=== PATIENT | female | born 1995 | race Two or more races ===

== ENCOUNTER 2017-06-18 20:25 | Emergency (ER) | payer SELFPAY ==
[~2017-06-18] VITALS: Ht 165.1 cm; Wt 70.0 kg
[~2017-06-18 20:25] MED LIST: BACT800T5 PO; IBUP-232 PO; TRAM50 PO; Z.0.NO CURRENT MEDS
[2017-06-18 21:49] VITALS: BP 134/90; PULSE 118; RESP 20; TEMP 99.9; O2SAT 100
[2017-06-18] MEDS ORDERED: SODIUM CHLOR 0.9% 1000 ML INJ 1,000 ML IV SCH (22:15)
[2017-06-18] MEDS ORDERED: SODIUM CHLORIDE 0.9% FLUSH 10 ML FLUSH IV FLUSH PRN (22:15)
[2017-06-18] MEDS ORDERED: ONDANSETRON HCL 4 MG/2 ML VIAL IV PUSH ONE (22:15)
[2017-06-18] MEDS ORDERED: ACETAMINOPHEN 325 MG TAB PO ONE (22:15)
--- NOTE | 2017-06-18 22:20 | PD ---
HPI Chief Complaint: Cold / Flu Symptoms Time Seen by Provider: 22:12 Travel History International Travel<30 days: No Contact w/Intl Traveler<30days: No Traveled to known affect area: No History of Present Illness HPI 21-year-old female here for evaluation of possible influenza. The patient reports that for the past 5 days she has had generalized malaise, upper respiratory symptoms, cough productive yellow sputum, sore throat, and over the last 2 days she has had several episodes of vomiting and diarrhea. Emesis consists of whatever she has eaten or drank. Diarrhea i watery and brown. No hemoptysis. She has had subjective fevers and chills. No rash. No urinary symptoms. PFSH Past Medical History Asthma: Yes Diminished Hearing: No Reproductive: Yes (OVARIAN CYST) Immunizations Current: Yes ?: Unknown LMP: 05/14/17 : 0 Para: 0 Past Surgical History Surgical History: No Previous Surgery Social History Alcohol Use: Yes Tobacco Use: No Substance Use: Yes ("WEED") Allergies-Medications (Allergen,Severity, Reaction): Coded Allergies: No Known Allergies (Verified Adverse Reaction, Unknown, 06/18/17) Reported Meds & Prescriptions Reported Meds & Active Scripts Active Review of Systems Except as stated in HPI: all other systems reviewed are Neg Physical Exam Narrative GENERAL: Well-developed, well-nourished, comfortable, no apparent distress. SKIN: Focused skin assessment warm/dry. No rash. HEAD: Atraumatic. Normocephalic. EYES: Pupils equal and round. No scleral icterus. No injection or drainage. ENT: Mucous membranes pink and moist. Normal pharynx. Bilateral tympanic membranes and external auditory canals are normal. NECK: Trachea midline. No JVD. No nuchal rigidity. CARDIOVASCULAR: Regular rate and rhythm. No murmur appreciated. RESPIRATORY: No accessory muscle use. Clear to auscultation. Breath sounds equal bilaterally. GASTROINTESTINAL: Abdomen soft, non-tender, nondistended. MUSCULOSKELETAL: No obvious deformities. No clubbing. No cyanosis. No edema. NEUROLOGICAL: Awake and alert. No obvious cranial nerve deficits. Motor grossly within normal limits. Normal speech. PSYCHIATRIC: Appropriate mood and affect; insight and judgment normal. Data Data Last Documented VS Vital Signs Date Time Temp Pulse Resp B/P (MAP) Pulse Ox O2 Delivery O2 Flow Rate FiO2 06/18/17 21:49 99.9 118 20 134/90 (105) 100 Orders Orders Beta Hcg (Quant/Titer) (06/18/17 22:15) Complete Blood Count With Diff (06/18/17 22:15) Comprehensive Metabolic Panel (06/18/17 22:15) Urinalysis - C+S If Indicated (06/18/17 22:15) Iv Access Insert/Monitor (06/18/17 22:15) Ecg Monitoring (06/18/17 22:15) Oximetry (06/18/17 22:15) Sodium Chlor 0.9% 1000 Ml Inj (Ns 1000 M (06/18/17 22:15) Sodium Chloride 0.9% Flush (Ns Flush) (06/18/17 22:15) Ed Urine Pregnancytest Poc (06/18/17 22:15) Ondansetron Inj (Zofran Inj) (06/18/17 22:15) Acetaminophen (Tylenol) (06/18/17 22:15) Group A Rapid Strep Screen (06/18/17 22:15) Influenzae A/B Antigen (06/18/17 22:15) Strep Culture (Group A) (06/18/17 22:35) Us Pelvis (Ques Preg/Ectopic) (06/18/17 ) Labs Laboratory Tests Test 06/18/17 22:35 White Blood Count 9.8 TH/MM3 Red Blood Count 4.57 MIL/MM3 Hemoglobin 12.9 GM/DL Hematocrit 37.3 % Mean Corpuscular Volume 81.6 FL Mean Corpuscular Hemoglobin 28.3 PG Mean Corpuscular Hemoglobin Concent 34.7 % Red Cell Distribution Width 14.0 % Platelet Count 278 TH/MM3 Mean Platelet Volume 8.3 FL Neutrophils (%) (Auto) 76.3 % Lymphocytes (%) (Auto) 13.5 % Monocytes (%) (Auto) 7.0 % Eosinophils (%) (Auto) 2.8 % Basophils (%) (Auto) 0.4 % Neutrophils # (Auto) 7.5 TH/MM3 Lymphocytes # (Auto) 1.3 TH/MM3 Monocytes # (Auto) 0.7 TH/MM3 Eosinophils # (Auto) 0.3 TH/MM3 Basophils # (Auto) 0.0 TH/MM3 CBC Comment DIFF FINAL Differential Comment Urine Color YELLOW Urine Turbidity HAZY Urine pH 5.5 Urine Specific [place] 1.020 Urine Protein TRACE mg/dL Urine Glucose (UA) NEG mg/dL Urine Ketones NEG mg/dL Urine Occult Blood SMALL Urine Nitrite NEG Urine Bilirubin NEG Urine Urobilinogen LESS THAN 2.0 MG/DL Urine Leukocyte Esterase MOD Urine RBC 1 /hpf Urine WBC 3 /hpf Urine Squamous Epithelial Cells 9 /hpf Urine Bacteria RARE /hpf Urine Hyaline Casts 1 /lpf Urine Mucus FEW /lpf Microscopic Urinalysis Comment CULT NOT INDICATED Blood Urea Nitrogen 5 MG/DL Creatinine 0.74 MG/DL Random Glucose 91 MG/DL Total Protein 8.2 GM/DL Albumin 4.2 GM/DL Calcium Level 8.5 MG/DL Alkaline Phosphatase 61 U/L Aspartate Amino Transf (AST/SGOT) 14 U/L Alanine Aminotransferase (ALT/SGPT) 17 U/L Total Bilirubin 0.3 MG/DL Sodium Level 138 MEQ/L Potassium Level 3.1 MEQ/L Chloride Level 104 MEQ/L Carbon Dioxide Level 24.5 MEQ/L Anion Gap 10 MEQ/L Estimat Glomerular Filtration Rate 97 ML/MIN Human Chorionic Gonadotropin, Quant 4526 MIU/ML [facility] Medical Decision Making Medical Screen Exam Complete: Yes Emergency Medical Condition: Yes Medical Record Reviewed: Yes Differential Diagnosis Influenza, viral illness, gastroenteritis, strep pharyngitis, dehydration/ metabolic abnormality Narrative Course Initial vital signs show heart rate 118, blood pressure 134/90, pulse ox 100% on room air, oral temperature 99.9F. CBC: WBC 9.8, hemoglobin 12.9, hematocrit 37.3, platelets 278, neutrophils 76%. CMP is remarkable for potassium 3.1 which was replaced orally. Beta hCG is 4526. UA: Hazy, small occult blood, moderate leukocyte esterase, rare bacteria, few mucus. The patient was made aware of all findings. She was given a dose of Zofran and a liter of normal saline IV. She states she still feels a little bit nauseous. She is also given Tylenol for her fever. She complains of having intermittent lower abdominal cramping. This is her first . Pelvic ultrasound will be ordered to evaluate for possible ectopic . Brain Bhatti MD Jun 18, 2017 22:20
[2017-06-18 22:48] LABS: AUTOMATED NEUTROPHIL # 7.5 TH/MM3 (1.8-7.7); BASOPHIL % 0.4 % (0.0-2.0); EOSINOPHIL # 0.3 TH/MM3 (0-0.4); EOSINOPHIL % 2.8 % (0.0-4.0); HEMATOCRIT 37.3 % (35.0-46.0); HEMOGLOBIN 12.9 GM/DL (11.6-15.3); LYMPH % 13.5 % (9.0-44.0); LYMPHOCYTE # 1.3 TH/MM3 (1.0-4.8); MEAN CELL VOLUME 81.6 FL (80.0-100.0); MEAN CORPUSCULAR HEMOGLOBIN 28.3 PG (27.0-34.0); MEAN CORPUSCULAR HGB CONC 34.7 % (32.0-36.0); MEAN PLATELET VOLUME 8.3 FL (7.0-11.0); MONOCYTE # 0.7 TH/MM3 (0-0.9); NEUT % 76.3 % (16.0-70.0); PLATELET COUNT 278 TH/MM3 (150-450); RED BLOOD COUNT 4.57 MIL/MM3 (4.00-5.30); WHITE BLOOD COUNT 9.8 TH/MM3 (4.0-11.0)
[2017-06-18 23:00] LABS: BACTERIA, URINE RARE /hpf; BILIRUBIN, URINE NEG (NEG); BLOOD, URINE SMALL (NEG); GLUCOSE,URINE NEG (NEG); HYALINE CAST, URINE 1 /lpf (RARE); KETONE, URINE NEG (NEG); MUCUS URINE FEW /lpf (OCC); NITRITE,URINE NEG (NEG); PH, URINE 5.5 (5.0-8.5); SQUAMOUS EPITHELIAL CELL URINE 9 /hpf (0-5); URINE COLOR YELLOW (YELLW/STRAW); URINE LEUKOCYTE ESTERASE MOD (NEG)
[2017-06-18 23:10] LABS: ALBUMIN 4.2 GM/DL (3.4-5.0); AST (GOT) 14 U/L (15-37); BICARBONATE 24.5 MEQ/L (21.0-32.0); BLOOD UREA NITROGEN 5 MG/DL (7-18); CALCIUM 8.5 MG/DL (8.5-10.1); CHLORIDE 104 MEQ/L (98-107); CREATININE 0.74 MG/DL (0.50-1.00); GLOMERULAR FILTRATION RATE 97 ML/MIN (>89); GLUCOSE,RANDOM 91 MG/DL (74-106); SODIUM (NA) 138 MEQ/L (136-145)
[2017-06-18 23:11] LABS: ALT (GPT) 17 U/L (10-53)
[2017-06-18 23:27] LABS: ALKALINE PHOSPHATASE 61 U/L (45-117); TOTAL BILIRUBIN ADULT 0.3 MG/DL (0.2-1.0); TOTAL PROTEIN 8.2 GM/DL (6.4-8.2)
[2017-06-18] MEDS ORDERED: POTASSIUM CHLORIDE 20 MEQ CONTROLLED RELEASE TAB PO ONE (23:45)
[2017-06-19] MEDS ORDERED: CEPHALEXIN MONOHYDRATE 500 MG CAP PO ONE (00:15)
--- NOTE | 2017-06-19 01:29 | RADRPT ---
EXAM DATE/TIME: 06/19/2017 00:53 [place] COMPARISON: No previous studies available for comparison. INDICATIONS : Nausea and vomiting. LAB(S): Beta-hC MEDICAL HISTORY : . SURGICAL HISTORY : None. ENCOUNTER: Initial ACUITY: 2 days PAIN SCORE: 3/10 LOCATION: Bilateral pelvis MEASUREMENTS: UTERUS: 7.3 x 5.1 x 3.8 cm ENDOMETRIAL STRIPE: 16 mm RIGHT OVARY: 4.0 x 2.5 x 2.0 cm LEFT OVARY: 3.0 x 1.1 x 1.7 cm FREE FLUID: Yes CROWN RUMP LENGTH: not seen = WKS DAYS FHR: not seen BPM FINDINGS: UTERUS: A small cystic structure seen associated with the endometrial canal consistent with a gestational sac . This is smoothly marginated. It measures 0.7 cm in mean diameter which is below the threshold for a ccurate gestational age the projection with ultrasound. A small yolk sac observed. RIGHT OVARY: A corpus luteal cyst is seen involving the right ovary measuring 2.5 cm in diameter. LEFT OVARY: Ovary contains no mass or significant cystic lesion. MISCELLANEOUS: Small amount of free fluid within the cul-de-sac. CONCLUSION: 1. Intrauterine gestation. Gestational age is below the threshold for accurate depiction with ultraso und. 2. Trace amount of free fluid within the cul-de-sac. Jered Treviño Jr., MD on June 19, 2017 at 1:24 Board Certified Radiologist. This report was verified electronically.
[2017-06-19] MEDS ORDERED: CEPH-460 PO (01:53)
--- NOTE | 2017-06-19 01:58 | PD ---
Physical Exam Date Seen by Provider: Jun 19, 2017 Time Seen by Provider: 01:53 Data Data Last Documented VS Vital Signs Date Time Temp Pulse Resp B/P (MAP) Pulse Ox O2 Delivery O2 Flow Rate FiO2 06/18/17 21:49 99.9 118 20 134/90 (105) 100 Orders Orders Beta Hcg (Quant/Titer) (06/18/17 22:15) Complete Blood Count With Diff (06/18/17 22:15) Comprehensive Metabolic Panel (06/18/17 22:15) Urinalysis - C+S If Indicated (06/18/17 22:15) Iv Access Insert/Monitor (06/18/17 22:15) Ecg Monitoring (06/18/17 22:15) Oximetry (06/18/17 22:15) Sodium Chlor 0.9% 1000 Ml Inj (Ns 1000 M (06/18/17 22:15) Sodium Chloride 0.9% Flush (Ns Flush) (06/18/17 22:15) Ed Urine Pregnancytest Poc (06/18/17 22:15) Ondansetron Inj (Zofran Inj) (06/18/17 22:15) Acetaminophen (Tylenol) (06/18/17 22:15) Group A Rapid Strep Screen (06/18/17 22:15) Influenzae A/B Antigen (06/18/17 22:15) Strep Culture (Group A) (06/18/17 22:35) Potassium Chloride (Kcl) (06/18/17 23:45) Cephalexin (Keflex) (06/19/17 00:15) Us Pelvis (Ques Pr/Ect)W Trans (06/19/17 ) Ed Discharge Order (06/19/17 01:52) Labs Laboratory Tests Test 06/18/17 22:35 White Blood Count 9.8 TH/MM3 Red Blood Count 4.57 MIL/MM3 Hemoglobin 12.9 GM/DL Hematocrit 37.3 % Mean Corpuscular Volume 81.6 FL Mean Corpuscular Hemoglobin 28.3 PG Mean Corpuscular Hemoglobin Concent 34.7 % Red Cell Distribution Width 14.0 % Platelet Count 278 TH/MM3 Mean Platelet Volume 8.3 FL Neutrophils (%) (Auto) 76.3 % Lymphocytes (%) (Auto) 13.5 % Monocytes (%) (Auto) 7.0 % Eosinophils (%) (Auto) 2.8 % Basophils (%) (Auto) 0.4 % Neutrophils # (Auto) 7.5 TH/MM3 Lymphocytes # (Auto) 1.3 TH/MM3 Monocytes # (Auto) 0.7 TH/MM3 Eosinophils # (Auto) 0.3 TH/MM3 Basophils # (Auto) 0.0 TH/MM3 CBC Comment DIFF FINAL Differential Comment Urine Color YELLOW Urine Turbidity HAZY Urine pH 5.5 Urine Specific [place] 1.020 Urine Protein TRACE mg/dL Urine Glucose (UA) NEG mg/dL Urine Ketones NEG mg/dL Urine Occult Blood SMALL Urine Nitrite NEG Urine Bilirubin NEG Urine Urobilinogen LESS THAN 2.0 MG/DL Urine Leukocyte Esterase MOD Urine RBC 1 /hpf Urine WBC 3 /hpf Urine Squamous Epithelial Cells 9 /hpf Urine Bacteria RARE /hpf Urine Hyaline Casts 1 /lpf Urine Mucus FEW /lpf Microscopic Urinalysis Comment CULT NOT INDICATED Blood Urea Nitrogen 5 MG/DL Creatinine 0.74 MG/DL Random Glucose 91 MG/DL Total Protein 8.2 GM/DL Albumin 4.2 GM/DL Calcium Level 8.5 MG/DL Alkaline Phosphatase 61 U/L Aspartate Amino Transf (AST/SGOT) 14 U/L Alanine Aminotransferase (ALT/SGPT) 17 U/L Total Bilirubin 0.3 MG/DL Sodium Level 138 MEQ/L Potassium Level 3.1 MEQ/L Chloride Level 104 MEQ/L Carbon Dioxide Level 24.5 MEQ/L Anion Gap 10 MEQ/L Estimat Glomerular Filtration Rate 97 ML/MIN Human Chorionic Gonadotropin, Quant 4526 MIU/ML [facility] Medical Record Reviewed: Yes Supervised Visit with ALBINO: Yes Interpretation(s) Last 24 hours Impressions Pelvis Ultrasound 06/19/17 0000 Signed Impressions: Service Date/Time: June 00:53 - CONCLUSION: 1. Intrauterine gestation. Gestational age is below the threshold for accurate depiction with ultrasound. 2. Trace amount of free fluid within the cul-de- sac. Jered Treviño Jr., MD Differential Diagnosis . Narrative Course The patient's ultrasound reveals a intrauterine sac age indeterminant but with her quantitative hCG she is most likely between 2-4 weeks. I have informed the patient of these findings. She is aware that this can be a very early or indication of an early miscarriage. Patient is advised to follow- up with a food services coordinator in the next 2-3 days and have repeat quantitative hCG as well as a repeat ultrasound in 1-2 weeks. Patient is instructed to return to the ER if she has any increasing abdominal pain, increasing vaginal bleeding or any other problems. She is discharged home on Keflex for urinary tract infection. Patient verbally states understanding and agrees with treatment plan and follow-up. Diagnosis Primary Impression: Early intrauterine Additional Impression: Urinary tract infection Referrals: [facility] 2 days Patient Instructions: General Instructions Additional Instruction: Rest. Increase fluids. Keflex. Follow-up with OB for repeat level in the next 2-3 days. Repeat ultrasound in the next 1-2 weeks. Return to the ER if any worsening symptoms or increased vaginal bleeding or abdominal pain. Med/Other Pt SpecificInfo: Prescription(s) given Scripts Cephalexin (Keflex) 500 Mg Capsule 500 MG PO BID for Infection, #14 CAP 0 Refills Prov: Brain Bhatti MD 06/19/17 Disposition: 01 DISCHARGE HOME Condition: Stable Lawrence Weems Jun 19, 2017 01:58
[2017-06-19 02:00] VITALS: BP 107/56
== END 2017-06-19 02:54 | disposition home or self-care (01) ==
LOC: NEPD 20:25
DX: O23.41 Unspecified infection of urinary tract in pregnancy, first trimester (principal); Z3A.00 Weeks of gestation of pregnancy not specified
CPT/HCPCS: 76700; 76817; 80053; 81001; 84702; 84703; 85025; 87081; 87804; 87880; 96361; 96374; 99284; J2405; J7030

== ENCOUNTER 2017-06-30 15:57 | Emergency (ER) | payer SELFPAY ==
[~2017-06-30 15:57] MED LIST changes: -BACT800T5 PO; +CEPH-460 PO; -IBUP-232 PO; -TRAM50 PO; -Z.0.NO CURRENT MEDS
[2017-06-30 16:14] VITALS: BP 125/71; PULSE 82; RESP 14; TEMP 98.8; O2SAT 99
[2017-06-30 17:52] LABS: AUTOMATED NEUTROPHIL # 5.3 TH/MM3 (1.8-7.7); BASOPHIL % 0.7 % (0.0-2.0); EOSINOPHIL % 0.6 % (0.0-4.0); HEMATOCRIT 37.6 % (35.0-46.0); HEMOGLOBIN 12.8 GM/DL (11.6-15.3); LYMPH % 16.5 % (9.0-44.0); LYMPHOCYTE # 1.2 TH/MM3 (1.0-4.8); MEAN CELL VOLUME 82.1 FL (80.0-100.0); MEAN CORPUSCULAR HGB CONC 34.1 % (32.0-36.0); MEAN PLATELET VOLUME 8.7 FL (7.0-11.0); MONO % 7.7 % (0.0-8.0); MONOCYTE # 0.6 TH/MM3 (0-0.9); NEUT % 74.5 % (16.0-70.0); PLATELET COUNT 301 TH/MM3 (150-450); RED BLOOD COUNT 4.58 MIL/MM3 (4.00-5.30); RED CELL DISTRIBUTION WIDTH 13.6 % (11.6-17.2); WHITE BLOOD COUNT 7.2 TH/MM3 (4.0-11.0)
[2017-06-30 17:58] LABS: AMORPHOUS SEDIMENT, URINE RARE; BACTERIA, URINE RARE /hpf; BILIRUBIN, URINE NEG (NEG); BLOOD, URINE NEG (NEG); GLUCOSE,URINE NEG (NEG); KETONE, URINE 10 mg/dL (NEG); MUCUS URINE MANY /lpf (OCC); NITRITE,URINE NEG (NEG); SQUAMOUS EPITHELIAL CELL URINE 8 /hpf (0-5); URINE COLOR YELLOW (YELLW/STRAW); URINE LEUKOCYTE ESTERASE LARGE (NEG)
[2017-06-30 18:09] LABS: ALBUMIN 4.3 GM/DL (3.4-5.0); AST (GOT) 19 U/L (15-37); BICARBONATE 24.1 MEQ/L (21.0-32.0); BLOOD UREA NITROGEN 6 MG/DL (7-18); CALCIUM 8.9 MG/DL (8.5-10.1); CHLORIDE 104 MEQ/L (98-107); GLOMERULAR FILTRATION RATE 104 ML/MIN (>89); GLUCOSE,RANDOM 90 MG/DL (74-106); SODIUM (NA) 137 MEQ/L (136-145)
[2017-06-30 18:10] LABS: ALT (GPT) 19 U/L (10-53)
[2017-06-30 18:26] LABS: ALKALINE PHOSPHATASE 57 U/L (45-117); TOTAL BILIRUBIN ADULT 0.4 MG/DL (0.2-1.0); TOTAL PROTEIN 8.3 GM/DL (6.4-8.2)
--- NOTE | 2017-07-03 10:53 | PD ---
HPI Chief Complaint: Related Problem Time Seen by Provider: 16:14 Travel History International Travel<30 days: No Contact w/Intl Traveler<30days: No Traveled to known affect area: No History of Present Illness HPI 21-year-old female who states she is approximately 7 weeks , presents emergency department for evaluation of nausea vomiting. Patient states that she has nausea vomiting after everything she eats. Has mild lower abdominal cramping over the last 2-3 days. No vaginal bleeding. She does have a white discharge. Denies any fever or chills. No other symptoms to report. PFSH Past Medical History Asthma: Yes Diminished Hearing: No Reproductive: Yes (OVARIAN CYST) Immunizations Current: Yes ?: LMP: 05/14/2017 : 0 Para: 0 Social History Alcohol Use: Yes Tobacco Use: No Substance Use: Yes ("WEED") Allergies-Medications (Allergen,Severity, Reaction): Coded Allergies: No Known Allergies (Verified Adverse Reaction, Unknown, 06/18/17) Reported Meds & Prescriptions Reported Meds & Active Scripts Active Keflex (Cephalexin) 500 Mg Capsule 500 Mg PO BID Review of Systems Except as stated in HPI: all other systems reviewed are Neg Physical Exam Narrative Well-nourished appearing female patient. she appears nontoxic. She has even respirations. Normal heart rate. She moves all extremities. She states to me clearly. Data Data Last Documented VS Vital Signs Date Time Temp Pulse Resp B/P (MAP) Pulse Ox O2 Delivery O2 Flow Rate FiO2 06/30/17 16:14 98.8 82 14 125/71 (89) 99 Orders Orders Beta Hcg (Quant/Titer) (06/30/17 16:16) Complete Blood Count With Diff (06/30/17 16:16) Comprehensive Metabolic Panel (06/30/17 16:16) Urinalysis - C+S If Indicated (06/30/17 16:16) Ed Urine Pregnancytest Poc (06/30/17 16:16) Complete Rh (06/30/17 16:16) Labs Laboratory Tests Test 06/30/17 16:45 06/30/17 16:50 Urine Color YELLOW Urine Turbidity CLOUDY Urine pH 7.0 Urine Specific [place] 1.028 Urine Protein 30 mg/dL Urine Glucose (UA) NEG mg/dL Urine Ketones 10 mg/dL Urine Occult Blood NEG Urine Nitrite NEG Urine Bilirubin NEG Urine Urobilinogen 2.0 MG/DL Urine Leukocyte Esterase LARGE Urine RBC 77 /hpf Urine Squamous Epithelial Cells 8 /hpf Urine Amorphous Sediment RARE Urine Bacteria RARE /hpf Urine Mucus MANY /lpf Microscopic Urinalysis Comment CULT NOT INDICATED White Blood Count 7.2 TH/MM3 Red Blood Count 4.58 MIL/MM3 Hemoglobin 12.8 GM/DL Hematocrit 37.6 % Mean Corpuscular Volume 82.1 FL Mean Corpuscular Hemoglobin 28.0 PG Mean Corpuscular Hemoglobin Concent 34.1 % Red Cell Distribution Width 13.6 % Platelet Count 301 TH/MM3 Mean Platelet Volume 8.7 FL Neutrophils (%) (Auto) 74.5 % Lymphocytes (%) (Auto) 16.5 % Monocytes (%) (Auto) 7.7 % Eosinophils (%) (Auto) 0.6 % Basophils (%) (Auto) 0.7 % Neutrophils # (Auto) 5.3 TH/MM3 Lymphocytes # (Auto) 1.2 TH/MM3 Monocytes # (Auto) 0.6 TH/MM3 Eosinophils # (Auto) 0.0 TH/MM3 Basophils # (Auto) 0.0 TH/MM3 CBC Comment DIFF FINAL Differential Comment Blood Urea Nitrogen 6 MG/DL Creatinine 0.70 MG/DL Random Glucose 90 MG/DL Total Protein 8.3 GM/DL Albumin 4.3 GM/DL Calcium Level 8.9 MG/DL Alkaline Phosphatase 57 U/L Aspartate Amino Transf (AST/SGOT) 19 U/L Alanine Aminotransferase (ALT/SGPT) 19 U/L Total Bilirubin 0.4 MG/DL Sodium Level 137 MEQ/L Potassium Level 3.4 MEQ/L Chloride Level 104 MEQ/L Carbon Dioxide Level 24.1 MEQ/L Anion Gap 9 MEQ/L Estimat Glomerular Filtration Rate 104 ML/MIN Human Chorionic Gonadotropin, Quant 92910 MIU/ML [facility] Medical Decision Making Medical Screen Exam Complete: Yes Emergency Medical Condition: Yes Medical Record Reviewed: Yes Differential Diagnosis versus hyperemesis gravidarum versus electrolyte abnormality versus UTI versus threatened versus STD Narrative Course 21-year-old female presents emergency department for evaluation. Patient appears nontoxic. Workup is initiated in triage. Prior to bed placement, patient chooses to leave. AMA: The risks of leaving against medical advice without further evaluation treatment were discussed with the patient. These risks include cardiac dysfunction, cardiac dysrhythmia, possible heart attack, possible stroke or . The patient indicated understanding of these risks and appeared to have the capacity to make this decision. Upon review of her lab work, patient does appear to have a UTI. I will make sure that she has been called back to be given appropriate prescription for this. Diagnosis Primary Impression: Vaginal discharge Patient Instructions: General Instructions Departure Forms: Tests/Procedures Disposition: 07 AGAINST MEDICAL ADVICE Condition: Stable Yael Laguerre Jul 03, 2017 10:53
== END 2017-06-30 19:39 | disposition left against medical advice (07) ==
LOC: NED 15:57
DX: O26.891 Other specified pregnancy related conditions, first trimester (principal); N89.8 Other specified noninflammatory disorders of vagina; Z3A.01 Less than 8 weeks gestation of pregnancy
CPT/HCPCS: 80053; 81001; 84702; 84703; 85025; 86901; 99283

== ENCOUNTER 2017-08-15 12:43 | Emergency (ER) | payer MEDICAID, OTHER ==
[~2017-08-15] VITALS: Ht 165.1 cm; Wt 59.0 kg
[2017-08-15 13:13] VITALS: BP 115/80; PULSE 129; RESP 19; TEMP 98.1; O2SAT 98
[2017-08-15] MEDS ORDERED: DOXY10TA PO (14:13)
[2017-08-15] MEDS ORDERED: ZOFR4TAB3 SL (14:13)
--- NOTE | 2017-08-15 14:25 | PD ---
HPI Chief Complaint: Related Problem Time Seen by Provider: 14:17 Travel History International Travel<30 days: No Contact w/Intl Traveler<30days: No Traveled to known affect area: No History of Present Illness HPI 22-year-old female presents emergency department with history of 13 weeks with 2 months of intractable vomiting. Patient has been tried on Zofran and Egesic, without improvement. Patient states her urine is dark, and she feels dehydrated. She cannot even keep water down. She has epigastric discomfort, but denies lower pelvic cramping, urinary symptoms or vaginal discharge or bleeding. Patient sees exchange teller at [facility]. She has no history of fever or other symptoms. This is the patient's first . She has no known drug allergies. [facility] Past Medical History Medical History: Denies Significant Hx Asthma: Yes Diminished Hearing: No Reproductive: Yes (OVARIAN CYST) Immunizations Current: Yes ?: : 0 Para: 0 Past Surgical History Surgical History: No Previous Surgery Social History Alcohol Use: No Tobacco Use: No Substance Use: Yes (MARIJUANA) Allergies-Medications (Allergen,Severity, Reaction): Coded Allergies: No Known Allergies (Verified Adverse Reaction, Unknown, 08/15/17) Reported Meds & Prescriptions Reported Meds & Active Scripts Active Reported Diclegis (Doxylamine-Pyridoxine) 10-10 Mg Tab 1 Tab PO BID Zofran Odt (Ondansetron Odt) 4 Mg Tab 4 Mg SL Q6HR PRN Review of Systems Except as stated in HPI: all other systems reviewed are Neg General / Constitutional: No: Fever Eyes: No: Visual changes HENT: No: Headaches Cardiovascular: No: Chest Pain or Discomfort Respiratory: No: Shortness of Breath Gastrointestinal: Positive: Nausea, Vomiting, Abdominal Pain, Indigestion, Dysphagia, Loss of Appetite, No: Diarrhea, Constipation Genitourinary: Positive: Other (Dark urine), No: Urgency, Frequency, Dysuria, Pelvic Pain, Flank Pain, Discharge, Vaginal Bleeding Musculoskeletal: No: Pain Skin: No Rash Neurologic: No: Weakness Psychiatric: No: Depression Endocrine: No: Polydipsia Hematologic/Lymphatic: No: Easy Bruising Physical Exam Narrative GENERAL: Patient appears in mild distress SKIN: Warm and dry. Normal color. Normal turgor. HEAD: Atraumatic. Normocephalic. EYES: Pupils equal and round. No scleral icterus. No injection or drainage. ENT: No nasal bleeding or discharge. Mucous membranes pink and moist. Pharynx is clear. Airways patent NECK: Trachea midline. Supple and nontender. CARDIOVASCULAR: Regular rate and rhythm. RESPIRATORY: No accessory muscle use. Clear to auscultation. Breath sounds equal bilaterally. GASTROINTESTINAL: Abdomen soft, mild epigastric tenderness, nondistended. Hepatic and splenic margins not palpable. No CVA tenderness. MUSCULOSKELETAL: Extremities without clubbing, cyanosis, or edema. No obvious deformities. NEUROLOGICAL: Awake and alert. No obvious cranial nerve deficits. Motor grossly within normal limits. Five out of 5 muscle strength in the arms and legs. Normal speech. PSYCHIATRIC: Appropriate mood and affect; insight and judgment normal. Data Data Last Documented VS Vital Signs Date Time Temp Pulse Resp B/P (MAP) Pulse Ox O2 Delivery O2 Flow Rate FiO2 08/15/17 13:13 98.1 129 19 115/80 (92) 98 Orders Orders Beta Hcg (Quant/Titer) (08/15/17 14:19) Complete Blood Count With Diff (08/15/17 14:19) Comprehensive Metabolic Panel (08/15/17 14:19) Urinalysis - C+S If Indicated (08/15/17 14:19) Sodium Chlor 0.9% 1000 Ml Inj (Ns 1000 M (08/15/17 14:19) Sodium Chloride 0.9% Flush (Ns Flush) (08/15/17 14:30) Promethazine Inj (Phenergan Inj) (08/15/17 14:30) Urine Culture (08/15/17 16:20) Ceftriaxone Inj (Rocephin Inj) (08/15/17 17:30) Labs Laboratory Tests Test 08/15/17 14:45 08/15/17 16:20 White Blood Count 9.0 TH/MM3 Red Blood Count 4.84 MIL/MM3 Hemoglobin 13.9 GM/DL Hematocrit 40.3 % Mean Corpuscular Volume 83.3 FL Mean Corpuscular Hemoglobin 28.8 PG Mean Corpuscular Hemoglobin Concent 34.6 % Red Cell Distribution Width 14.6 % Platelet Count 318 TH/MM3 Mean Platelet Volume 8.8 FL Neutrophils (%) (Auto) 78.7 % Lymphocytes (%) (Auto) 15.8 % Monocytes (%) (Auto) 4.8 % Eosinophils (%) (Auto) 0.1 % Basophils (%) (Auto) 0.6 % Neutrophils # (Auto) 7.1 TH/MM3 Lymphocytes # (Auto) 1.4 TH/MM3 Monocytes # (Auto) 0.4 TH/MM3 Eosinophils # (Auto) 0.0 TH/MM3 Basophils # (Auto) 0.1 TH/MM3 CBC Comment DIFF FINAL Differential Comment Blood Urea Nitrogen 13 MG/DL Creatinine 0.77 MG/DL Random Glucose 93 MG/DL Total Protein 8.9 GM/DL Albumin 4.1 GM/DL Calcium Level 9.6 MG/DL Alkaline Phosphatase 67 U/L Aspartate Amino Transf (AST/SGOT) 42 U/L Alanine Aminotransferase (ALT/SGPT) 51 U/L Total Bilirubin 0.8 MG/DL Sodium Level 138 MEQ/L Potassium Level 3.9 MEQ/L Chloride Level 102 MEQ/L Carbon Dioxide Level 24.6 MEQ/L Anion Gap 11 MEQ/L Estimat Glomerular Filtration Rate 92 ML/MIN Human Chorionic Gonadotropin, Quant [id number] MIU/ML Urine Color DARK-YELLOW Urine Turbidity HAZY Urine pH 6.0 Urine Specific [place] 1.032 Urine Protein 30 mg/dL Urine Glucose (UA) NEG mg/dL Urine Ketones 150 mg/dL Urine Occult Blood NEG Urine Nitrite NEG Urine Bilirubin SMALL Urine Urobilinogen 4.0 MG/DL Urine Leukocyte Esterase LARGE Urine WBC 2 /hpf Urine Squamous Epithelial Cells 15 /hpf Urine Bacteria MOD /hpf Urine Mucus MANY /lpf Microscopic Urinalysis Comment CULTURE INDICATED MDM Medical Decision Making Medical Screen Exam Complete: Yes Emergency Medical Condition: Yes Differential Diagnosis Hyperemesis gravidarum. Intractable vomiting. Dehydration. Narrative Course Patient appears medically stable at time of exam. Labs ordered including CBC, CMP, serum hCG, lactic acid, and urinalysis. IV access is obtained the patient is given 2000 mL of normal saline bolus. Patient is given 25 mg Phenergan IM. CBC is unremarkable. CMP is unremarkable, with an hCG of [id number]. Urinalysis strongly suggest urinary tract infection appearing dark yellow, and hazy. Specific gravity is 1.030. There is 30 protein, 150 ketones, small bilirubin, and large leukocyte esterase. Patient is noted to have moderate bacteria. Urine culture is placed. Patient is given 1000 mg Rocephin IV. Patient is continued on Keflex 500mg 3 times daily for 7 days. Patient is given Phenergan 25 mg every 6 hours as needed nausea vomiting #20. Patient is to rest, push fluids, and follow-up with her CAMPUS WELLNESS COORDINATOR next week. Diagnosis Primary Impression: UTI (urinary tract infection) Qualified Codes: N30.00 - Acute cystitis without hematuria Additional Impression: Hyperemesis gravidarum Referrals: [facility] Patient Instructions: Dysuria (ED), General Instructions, Hyperemesis Gravidarum (ED) Additional Instructions: V access is obtained the patient is given 2000 mL of normal saline bolus. Patient is given 25 mg Phenergan IM. CBC is unremarkable. CMP is unremarkable, with an hCG of [id number]. Urinalysis strongly suggest urinary tract infection appearing dark yellow, and hazy. Specific gravity is 1.030. There is 30 protein, 150 ketones, small bilirubin, and large leukocyte esterase. Patient is noted to have moderate bacteria. Urine culture is placed. Patient is given 1000 mg Rocephin IV. Patient is continued on Keflex 500mg 3 times daily for 7 days. Patient is given Phenergan 25 mg every 6 hours as needed nausea vomiting #20. Patient is to rest, push fluids, and follow-up with her CAMPUS WELLNESS COORDINATOR next week. Med/Other Pt SpecificInfo: Prescription(s) given Disposition: 01 DISCHARGE HOME Condition: Stable Delfino Stokes August 15, 2017 14:25
[2017-08-15] MEDS ORDERED: SODIUM CHLORIDE 0.9% FLUSH 10 ML FLUSH IV FLUSH PRN (14:30)
[2017-08-15] MEDS ORDERED: PROMETHAZINE INJ 25 MG/ML VIAL IM ONE (14:30)
[2017-08-15] MEDS: SODIUM CHLOR 0.9% 1000 ML INJ 1,000 ML IV SCH ×2 (14:50→15:28)
[2017-08-15 15:24] LABS: AUTOMATED NEUTROPHIL # 7.1 TH/MM3 (1.8-7.7); BASOPHIL # 0.1 TH/MM3 (0-0.2); BASOPHIL % 0.6 % (0.0-2.0); EOSINOPHIL % 0.1 % (0.0-4.0); HEMATOCRIT 40.3 % (35.0-46.0); HEMOGLOBIN 13.9 GM/DL (11.6-15.3); LYMPH % 15.8 % (9.0-44.0); LYMPHOCYTE # 1.4 TH/MM3 (1.0-4.8); MEAN CELL VOLUME 83.3 FL (80.0-100.0); MEAN CORPUSCULAR HEMOGLOBIN 28.8 PG (27.0-34.0); MEAN CORPUSCULAR HGB CONC 34.6 % (32.0-36.0); MEAN PLATELET VOLUME 8.8 FL (7.0-11.0); MONO % 4.8 % (0.0-8.0); MONOCYTE # 0.4 TH/MM3 (0-0.9); NEUT % 78.7 % (16.0-70.0); PLATELET COUNT 318 TH/MM3 (150-450); RED BLOOD COUNT 4.84 MIL/MM3 (4.00-5.30); RED CELL DISTRIBUTION WIDTH 14.6 % (11.6-17.2)
--- NOTE | 2017-08-15 15:44 | PD ---
Physical Exam Date Seen by Provider: August 15, 2017 Narrative This patient presents with emesis and weight loss associated with . Data Data Last Documented VS Vital Signs Date Time Temp Pulse Resp B/P (MAP) Pulse Ox O2 Delivery O2 Flow Rate FiO2 08/15/17 13:13 98.1 129 19 115/80 (92) 98 Orders Orders Beta Hcg (Quant/Titer) (08/15/17 14:19) Complete Blood Count With Diff (08/15/17 14:19) Comprehensive Metabolic Panel (08/15/17 14:19) Urinalysis - C+S If Indicated (08/15/17 14:19) Sodium Chlor 0.9% 1000 Ml Inj (Ns 1000 M (08/15/17 14:19) Sodium Chloride 0.9% Flush (Ns Flush) (08/15/17 14:30) Promethazine Inj (Phenergan Inj) (08/15/17 14:30) Labs Laboratory Tests Test 08/15/17 14:45 White Blood Count 9.0 TH/MM3 Red Blood Count 4.84 MIL/MM3 Hemoglobin 13.9 GM/DL Hematocrit 40.3 % Mean Corpuscular Volume 83.3 FL Mean Corpuscular Hemoglobin 28.8 PG Mean Corpuscular Hemoglobin Concent 34.6 % Red Cell Distribution Width 14.6 % Platelet Count 318 TH/MM3 Mean Platelet Volume 8.8 FL Neutrophils (%) (Auto) 78.7 % Lymphocytes (%) (Auto) 15.8 % Monocytes (%) (Auto) 4.8 % Eosinophils (%) (Auto) 0.1 % Basophils (%) (Auto) 0.6 % Neutrophils # (Auto) 7.1 TH/MM3 Lymphocytes # (Auto) 1.4 TH/MM3 Monocytes # (Auto) 0.4 TH/MM3 Eosinophils # (Auto) 0.0 TH/MM3 Basophils # (Auto) 0.1 TH/MM3 CBC Comment DIFF FINAL Differential Comment MDM Supervised Visit with ALBINO: Yes Narrative Course I, Dr. Garcia, have reviewed the advance practice practitioner's documentation and am in agreement, met with the patient face to face, made the diagnosis, and the medical decision making was done by me. *My assessment and Findings: The patient is awake and alert. She does not look like she feels well. She is being treated with IV fluids. Please see Marino Stokes PA-C's note for results of laboratory and radiographic evaluation, ED course, final diagnosis and disposition Condition: Stable Karon Garcia MD August 15, 2017 15:44
[2017-08-15 15:55] LABS: ALBUMIN 4.1 GM/DL (3.4-5.0); ALT (GPT) 51 U/L (10-53); AST (GOT) 42 U/L (15-37); BICARBONATE 24.6 MEQ/L (21.0-32.0); BLOOD UREA NITROGEN 13 MG/DL (7-18); CALCIUM 9.6 MG/DL (8.5-10.1); CHLORIDE 102 MEQ/L (98-107); CREATININE 0.77 MG/DL (0.50-1.00); GLOMERULAR FILTRATION RATE 92 ML/MIN (>89); GLUCOSE,RANDOM 93 MG/DL (74-106); SODIUM (NA) 138 MEQ/L (136-145)
[2017-08-15 16:12] LABS: ALKALINE PHOSPHATASE 67 U/L (45-117); TOTAL BILIRUBIN ADULT 0.8 MG/DL (0.2-1.0); TOTAL PROTEIN 8.9 GM/DL (6.4-8.2)
[2017-08-15 16:47] LABS: BACTERIA, URINE MOD /hpf; BILIRUBIN, URINE SMALL (NEG); BLOOD, URINE NEG (NEG); GLUCOSE,URINE NEG (NEG); KETONE, URINE 150 mg/dL (NEG); MUCUS URINE MANY /lpf (OCC); NITRITE,URINE NEG (NEG); SQUAMOUS EPITHELIAL CELL URINE 15 /hpf (0-5); URINE COLOR DARK-YELLOW (YELLW/STRAW); URINE LEUKOCYTE ESTERASE LARGE (NEG)
[2017-08-15] MEDS ORDERED: cefTRIAXone INJ 1,000 MG in SODIUM CHLORIDE 0.9% INJ 100 ML IV ONE (17:30)
[2017-08-15] MEDS ORDERED: CEPH-460 PO (17:34)
[2017-08-15] MEDS ORDERED: PROM25TA10 PO (17:34)
[2017-08-15 18:40] VITALS: BP 112/68
== END 2017-08-15 18:48 | disposition home or self-care (01) ==
LOC: NEPD 12:43
DX: O23.11 Infections of bladder in pregnancy, first trimester (principal); O21.0 Mild hyperemesis gravidarum; Z3A.13 13 weeks gestation of pregnancy
CPT/HCPCS: 80053; 81001; 84702; 85025; 87086; 96361; 96372; 96374; 99284; J0696; J2550; J7030

== ENCOUNTER 2018-02-09 09:26 | Inpatient (IN) ==
--- NOTE | 2018-02-09 10:38 | ED ---
History of Present Illness Primary Care Physician: No Primary Care Physician Chief Complaint: abdominal cramping History of Present Illness: 22 y/o female at 38/5 weeks gestation presents for abdominal cramping and vaginal spotting. Patient states that she started experiencing abdominal contractions that started at 11:00am yesterday. She now states that she is experiencing mild to moderate contractions about 10 mins apart since this morning. She also notes passing 2 small clots and light spotting. Some white vaginal discharges noticed on her pantiliner this morning. No gush of fluids. She admits to mild nausea and single episode of vomiting earlier today. She is still feeling movement. Denies fever, chills, chest pain or shortness of breath. No complications with this . History of anemia and ovarian cysts. No medications. NDKA. No previous surgery. Social hx: Non-smoker. No ETOH. Stopped smoking marijuana when she found out she was . Weeks Gestation:: 38 Para: 1 : 0 Review of Systems Constitutional: Denies chills, Denies fever(s) Cardiovascular: Denies chest pain Respiratory: Denies shortness of breath Gastrointestinal: Reports cramping, Reports nausea, Reports vomiting Genitourinary: Reports abnormal vaginal bleeding PMFSH - Medical / Surgical Hx Neg / Unobtainable Medical Problems Denied: Yes Surgical History: No Previous Surgery Medications and Allergies Allergies Allergy/AdvReac Type Severity Reaction Status Date / Time No Known Allergies Allergy Verified 02/09/18 10:18 Exam Vital signs: Vital Signs 02/09/18 09:53 02/09/18 09:56 Temperature 98.4 F Pulse Rate 81 Respiratory Rate 17 Blood Pressure 115/56 L Narrative: GENERAL: Well-nourished, well-developed patient. SKIN: Warm and dry. HEAD: Normocephalic and atraumatic. EYES: No scleral icterus. No injection or drainage. ENT: No nasal drainage noted. Mucous membranes pink. Airway patent. NECK: Supple, trachea midline. No JVD. CARDIOVASCULAR: Regular rate and rhythm without murmurs, gallops, or rubs. RESPIRATORY: Breath sounds equal bilaterally. No accessory muscle use. ABDOMEN/GI: Abdomen soft, non-tender, bowel sounds present, no rebound, no guarding Gravid to [-] weeks size GENITOURINARY: External Genitalia: intact and normal in appearance Cervix: posterior, soft Dilatation: closed Effacement: Station: -2 Presentation: vertex Membranes: intact Uterine Contractions: irregular FHT's: Category: 1 Baseline: 130-140s Reactive: yes Variability: moderate Decels: none EXTREMITIES: No cyanosis or edema. BACK: Nontender without obvious deformity. No CVA tenderness. NEUROLOGICAL: Awake and alert. Motor and sensory grossly within normal limits. Five out of 5 muscle strength in all muscle groups. Normal speech. Assessment and Plan - Diagnosis (1) 38 weeks gestation of Code(s): Z3A.38 - 38 weeks gestation of Status: Acute (2) Uterine contractions Status: Acute - Plan 22 y/o female at 38/5 weeks gestation presenting for uterine contractions and vaginal spotting. -sterile speculum exam performed, without visualized bleeding -cervical exam performed -labor check negative -continue routine antepartum care -encouraged oral hydration and PNV -patient to f/u with OB provider w/n the week sdw Dr. Freire Discharge Plan - Discharge Disposition Patient Disposition: Discharge Home - Discharge Condition Condition: Stable - Discharge Order Discharge Orders: Discharge Order (Routine); Ordered 02/09/18 Ordered By: Sudha Varela - Discharge Details Anticipated Discharge Date: 02/09/18 Discharge Comment: OB f/u this week - Physicians Team ED Provider: Erick Hernandez Primary Care Provider: Primary Care Gracie Cantu - Discharge Instructions Print Language: Norwegian Patient Printed Instructions: at 35 to 38 Weeks (ED)
[2018-02-11] MEDS ORDERED: fentaNYL Citrate Inj 100 MCG/2 ML Ampul IV.PUSH PRN (09:08)
[2018-02-11] MEDS ORDERED: Sod Chloride 0.9% Inj 1,000 ML IV.CONT PRN (09:08)
[2018-02-11] MEDS ORDERED: Naloxone Inj 0.4 MG/ML Vial IV.PUSH PRN ×2 (09:08→20:11)
[2018-02-11] MEDS ORDERED: Sodium Chlor 0.9% Inj 500 ML IV.SIG PRN (09:08)
[2018-02-11] MEDS ORDERED: Citric Acid/Sodium Citrate Liq 30 ML UDC PO SCH (09:15)
[2018-02-11] MEDS ORDERED: Oxytocin 30 Units/500ml Premix 30 UNITS/500 ML BAG IV.SIG ONE (09:30)
[2018-02-11 09:47] LABS: Baso % (Auto) 0.5 % (0.0-2.0); Eos # (Auto) 0.1 th/mm3 (0.0-0.4); Eos % (Auto) 0.7 % (0.0-4.0); Hematocrit 27.6 % (35.0-46.0); Lymph # (Auto) 1.9 th/mm3 (1.0-4.8); Lymph % (Auto) 23.5 % (9.0-44.0); Mean Corpuscular HGB Conc 32.8 % (32.0-36.0); Mean Corpuscular Volume 73.1 fL (80.0-100.0); Mean Platelet Volume 8.5 fL (7.0-11.0); Mono # (Auto) 0.6 th/mm3 (0.0-0.9); Mono % (Auto) 7.9 % (0.0-8.0); Neut # (Auto) 5.4 th/mm3 (1.8-7.7); Neut % (Auto) 67.4 % (16.0-70.0); Platelet Count 288 th/mm3 (150-450); Red Blood Count 3.77 mil/mm3 (4.00-5.30); Red Cell Distribution Width 16.8 % (11.6-17.2); White Blood Count 7.9 th/mm3 (4.0-11.0)
[2018-02-11 09:51] LABS: Bacteria,Urine Many /hpf; Bilirubin,Urine Negative (Negative); Clarity,Urine Hazy (Clear); Color,Urine Yellow (Yellw/Straw); Glucose,Urine (UA) Negative (Negative); Leukocyte Esterase,Urine Small (Negative); Mucus,Urine Few /lpf (Occasional); Nitrite,Urine Negative (Negative); Squamous Epithelial Cell,Urine 9 /hpf (0-5)
[2018-02-11 09:55] LABS: Amphetamine Urine With Conf Neg (Neg); Benzodiazepine Urine With Conf Neg (Neg)
[2018-02-11] MEDS: fentaNYL Citrate Inj 100 MCG/2 ML Ampul IV.PUSH PRN ×3 (13:16→16:29)
--- NOTE | 2018-02-11 14:46 | P.HPOB ---
History of Present Illness Primary Care Physician: No Primary Care Physician Chief Complaint: abdominal cramping History of Present Illness: 22 y/o female at 39/0 weeks gestation presents for abdominal cramping and vaginal spotting. Patient states that she started experiencing abdominal contractions that started at 11:00am yesterday. She now states that she is experiencing mild to moderate contractions about 10 mins apart since this morning. She also notes passing 2 small clots and light spotting. Some white vaginal discharges noticed on her pantiliner this morning. No gush of fluids. She admits to mild nausea and single episode of vomiting earlier today. She is still feeling movement. Denies fever, chills, chest pain or shortness of breath. No complications with this . History of anemia and ovarian cysts. No medications. NDKA. No previous surgery. Social hx: Non-smoker. No ETOH. Stopped smoking marijuana when she found out she was . Weeks Gestation:: 39 - Inpatient Certification I certify that the inpatient services were ordered in accordance with Medicare regulations governing the order. This includes certification that hospital inpatient services are reasonable and necessary and in the case of services not specified as inpatient-only under 42 CFR 419.22(n), that they are appropriately provided as inpatient services in accordance to with the 2-midnight benchmark under 43 CFR 412.3(e) Estimated Total Length of Stay (Days): 3 Plans for Post Hospital Care: Home Review of Systems Constitutional: Denies chills, Denies fever(s) Cardiovascular: Denies chest pain Respiratory: Denies shortness of breath Gastrointestinal: Reports cramping, Reports nausea, Reports vomiting Genitourinary: Reports abnormal vaginal bleeding PMFSH - Medical / Surgical Hx Neg / Unobtainable Medical Problems Denied: Yes - Travel History Recent Travel in the [place] Within the Last 8 Weeks: No Recent Travel Out of the Country Within the Last 8 Weeks: No Medications and Allergies Active Medications: Active Medications Citric Acid/Sodium Citrate (Sodium Citrate/Citric Acid Liq) 30 ml PO [employer] [facility] Stop: 02/15/18 09:14 Fentanyl Citrate (Fentanyl Inj) 100 mcg IV.PUSH Q1H PRN PRN Reason: PAIN SCALE 6 TO 10 Last Admin: 02/11/18 14:35 Dose: 100 mcg Fentanyl Citrate (Fentanyl Inj) 50 mcg IV.PUSH Q1H PRN PRN Reason: Pain Scale 3 - 5 Lactated Ringer's (Lr 1000 Ml Inj) 1,000 mls @ 125 mls/hr IV.CONT .Q8H LORA Last Admin: 02/11/18 09:10 Dose: 125 mls/hr Lactated Ringer's (Lr 1000 Ml Inj) 1,000 mls @ 3,000 mls/hr IV.SIG UNSCH PRN PRN Reason: compromise or epidural Last Admin: 02/11/18 13:15 Dose: 3,000 mls/hr Sodium Chloride (Ns Inj) 500 mls @ 1,000 mls/hr IV.SIG UNSCH PRN PRN Reason: SEE LABEL COMMENTS Sodium Chloride (Ns Inj) 1,000 mls @ 100 mls/hr IV.CONT .Q10H PRN PRN Reason: SEE LABEL COMMENTS Lidocaine HCl (Xylocaine 1% Inj) 0.1 ml I-DERMAL PRN PRN PRN Reason: For IV start Stop: 02/14/18 09:07 Lidocaine HCl (Xylocaine 1% Inj) 10 ml INFILTRATN PRN PRN PRN Reason: For episiotomy repair Stop: 02/13/18 09:07 Mineral Oil (Muri-Lube Oil) 10 ml TOPICAL UNSCH PRN PRN Reason: PRN perineal massage Naloxone HCl (Narcan Inj) 0.1 mg IV.PUSH Q2M PRN PRN Reason: for opiate reversal Allergies Allergy/AdvReac Type Severity Reaction Status Date / Time No Known Allergies Allergy Verified 02/11/18 07:04 Home Medications Medication Instructions Recorded Confirmed Type No Known Home Medications 02/11/18 02/11/18 History Exam Vital signs: Vital Signs 02/11/18 09:21 02/11/18 09:30 02/11/18 12:18 Temperature 97.8 F Pulse Rate 77 88 Respiratory Rate 18 Blood Pressure 125/80 119/79 02/11/18 13:15 Temperature Pulse Rate Respiratory Rate 18 Blood Pressure Intake & Output 02/10/18 02/11/18 02/11/18 18:59 06:59 18:59 Weight 77.564 kg Narrative: GENERAL: Well-nourished, well-developed patient. SKIN: Warm and dry. HEAD: Normocephalic and atraumatic. EYES: No scleral icterus. No injection or drainage. ENT: No nasal drainage noted. Mucous membranes pink. Airway patent. NECK: Supple, trachea midline. No JVD. CARDIOVASCULAR: Regular rate and rhythm without murmurs, gallops, or rubs. RESPIRATORY: Breath sounds equal bilaterally. No accessory muscle use. ABDOMEN/GI: Abdomen soft, non-tender, bowel sounds present, no rebound, no guarding Gravid to 38 weeks size GENITOURINARY: External Genitalia: intact and normal in appearance Cervix: posterior, soft Dilatation: 4cm Effacement: 90% Station: -1 Presentation: vertex Membranes: AROM Uterine Contractions: q2-3min FHT's: Category: 1 Baseline: 120s-130s Reactive: yes Variability: moderate Decels: none EXTREMITIES: No cyanosis or edema. BACK: Nontender without obvious deformity. No CVA tenderness. NEUROLOGICAL: Awake and alert. Motor and sensory grossly within normal limits. Five out of 5 muscle strength in all muscle groups. Normal speech. Results - Labs CBC & Chem 7: 02/11/18 09:10 Labs: Laboratory Results - last 24 hr 02/11/18 02/11/18 02/11/18 09:06 09:06 09:10 WBC 7.9 RBC 3.77 L Hgb 9.0 L Hct 27.6 L MCV 73.1 L MCH 24.0 L MCHC 32.8 RDW 16.8 Plt Count 288 MPV 8.5 Neut % (Auto) 67.4 Lymph % (Auto) 23.5 [place] % (Auto) 7.9 Eos % (Auto) 0.7 Baso % (Auto) 0.5 Neut # (Auto) 5.4 Lymph # (Auto) 1.9 [place] # (Auto) 0.6 Eos # (Auto) 0.1 Baso # (Auto) 0.0 WBC Differential . Differential Comment Auto diff final Urine Color Yellow Urine Clarity Hazy H Urine pH 6.0 Ur Specific [place] 1.010 Urine Protein Negative Urine Glucose (UA) Negative Urine Ketones Negative Urine Occult Blood Moderate H Urine Nitrate Negative Urine Bilirubin Negative Urine Urobilinogen Less than 2 Ur Leukocyte Esterase Small H Urine RBC Less than 1 Urine WBC 17 H Ur Squamous Epith Cells 9 Urine Bacteria Many H Urine Mucus Few H Micro UA Comment Culture indicated Ur Microscopic Review Not Reportable Urine Culture Comments Culture indicated Urine Opiates Screen Neg Ur Barbiturates Screen Neg Ur Amphetamine Screen Neg U Benzodiazepines Scrn Neg Urine Cocaine Screen Neg U Cannabinoids Screen Neg Blood Type 02/11/18 09:10 WBC RBC Hgb Hct MCV MCH MCHC RDW Plt Count MPV Neut % (Auto) Lymph % (Auto) [place] % (Auto) Eos % (Auto) Baso % (Auto) Neut # (Auto) Lymph # (Auto) [place] # (Auto) Eos # (Auto) Baso # (Auto) WBC Differential Differential Comment Urine Color Urine Clarity Urine pH Ur Specific [place] Urine Protein Urine Glucose (UA) Urine Ketones Urine Occult Blood Urine Nitrate Urine Bilirubin Urine Urobilinogen Ur Leukocyte Esterase Urine RBC Urine WBC Ur Squamous Epith Cells Urine Bacteria Urine Mucus Micro UA Comment Ur Microscopic Review Urine Culture Comments Urine Opiates Screen Ur Barbiturates Screen Ur Amphetamine Screen U Benzodiazepines Scrn Urine Cocaine Screen U Cannabinoids Screen Blood Type O Positive Caprini VTE Risk Assessment Caprini VTE Risk Assessment: Moderate/High Risk (score >= 2) Caprini Risk Assessment Model: Point Value = 1 Point Value = 2 Point Value = 3 Point Value = 5 Age 41-60 Minor surgery BMI > 25 kg/m2 Swollen legs Varicose veins or History of unexplained or recurrent spontaneous Oral contraceptives or hormone replacement Sepsis (< 1 month) Serious lung disease, including pneumonia (< 1 month) Abnormal pulmonary function Acute myocardial infarction Congestive heart failure (< 1 month) History of inflammatory bowel disease Medical patient at bed rest Age 61-74 Arthroscopic surgery Major open surgery (> 45 min) Laparoscopic surgery (> 45 min) Malignancy Confined to bed (> 72 hours) Immobilizing plaster cast Central venous access Age >= 75 History of VTE Family history of VTE Factor V Leiden Prothrombin [id number] Lupus anticoagulant Anticardiolipin antibodies Elevated serum homocysteine Heparin-induced thrombocytopenia Other congenital or acquired thrombophilia Stroke (< 1 month) Elective arthroplasty Hip, pelvis, or leg fracture Acute spinal cord injury (< 1 month) Prophylaxis Regimen: Total Risk Factor Score Risk Level Prophylaxis Regimen 0-1 Low Early ambulation 2 Moderate Order ONE of the following: *Sequential Compression Device (SCD) *Heparin 5000 units SQ BID 3-4 Higher Order ONE of the following medications: *Heparin 5000 units SQ TID *Enoxaparin/Lovenox 40 mg SQ daily (WT < 150 kg, CrCl > 30 mL/min) *Enoxaparin/Lovenox 30 mg SQ daily (WT < 150 kg, CrCl > 10-29 mL/min) *Enoxaparin/Lovenox 30 mg SQ BID (WT < 150 kg, CrCl > 30 mL/min) AND/OR *Sequential Compression Device (SCD) 5 or more Highest Order ONE of the following medications: *Heparin 5000 units SQ TID (Preferred with Epidurals) *Enoxaparin/Lovenox 40 mg SQ daily (WT < 150 kg, CrCl > 30 mL/min) *Enoxaparin/Lovenox 30 mg SQ daily (WT < 150 kg, CrCl > 10-29 mL/min) *Enoxaparin/Lovenox 30 mg SQ BID (WT < 150 kg, CrCl > 30 mL/min) AND *Sequential Compression Device (SCD) Assessment and Plan - Diagnosis (1) 39 weeks gestation of Code(s): Z3A.39 - 39 weeks gestation of Status: Acute Plan: 22 y/o female at 39/0 weeks gestation presenting for uterine contractions and vaginal spotting. Cervix: 4/90/-1 FHT: Category 1, reassuring -sterile speculum exam performed in ED, without visualized bleeding -Admitted to Labor and Delivery -AROM of clear fluid at 1506 -Pt deciding whether to get an epidural sdw Dr. Freire (2) Uterine contractions Status: Acute
[2018-02-11] MEDS ORDERED: Measles/Mumps/Rubella Vaccine Inj 0.5 ML Vial SQ ONE (16:00)
[2018-02-11] MEDS ORDERED: Diphtheria/Tetanus/Pertussis Vaccine Inj 0.5 ML Syringe IM ONE (16:00)
[2018-02-11] MEDS ORDERED: fentaNYL 2MCG-Bupiv 0.125% Epi 150 ML EPIDURAL ONE (17:18)
[2018-02-11] MEDS ORDERED: Lidocaaine 1.5%/Epinephrine 1:200,000 PF Inj 5 ML Amp ONE (17:21)
[2018-02-11] MEDS ORDERED: Lidocaine PF 1% Inj 5 ML Vial ONE (17:21)
[2018-02-11] MEDS ORDERED: fentaNYL 2MCG-Bupiv 0.125% Epi 150 ML EPIDURAL PRN (18:09)
[2018-02-11] MEDS ORDERED: fentaNYL Citrate Inj 100 MCG/2 ML Ampul EPIDURAL ONE (18:09)
[2018-02-11] MEDS ORDERED: miSOPROStol 200 MCG Tablet ONE (19:59)
[2018-02-11] MEDS ORDERED: Oxytocin 30 Units/500ml Premix 30 UNITS/500 ML BAG IV.CONT PRN (20:11)
[2018-02-11] MEDS ORDERED: Benzocaine 20% Top Spray 60 ML Can TOPICAL PRN (20:11)
[2018-02-11] MEDS ORDERED: Bisacodyl 10 MG Supp RECTAL PRN (20:11)
[2018-02-11] MEDS ORDERED: Witch Hazel 50%/Glyderin 12.5% 40 Pad Jar RECTAL PRN (20:11)
--- NOTE | 2018-02-11 20:14 | P.OBDELI ---
Weeks Gestation: 39 Patient Started Active Labor: Yes Medical Induction of Labor: No Artificial Rupture of Membrane: Yes Anesthesia: Epidural Vaginal Delivery: Normal Presentation: Occiput anterior Delayed Cord Clamping (45 sec): Yes Placenta: Spontaneous delivery, Uterus explored + Laceration: Vaginal (multiple), 2 deg Repair: Chromic interrupted Estimated blood loss (mL): 250 (Oozing noted uterus explored no retained products all lacerations addressed no acne present there was a delay in the pit which has been initiated Cytotec 200 p.o. as well as Cytotec 600 per rectum administered and will add another 10 units of Pitocin and observe)
[2018-02-11] MEDS ORDERED: miSOPROStol 200 MCG Tablet PO STA (20:15)
[2018-02-11] MEDS ORDERED: miSOPROStol 200 MCG Tablet RECTAL STA (20:16)
[2018-02-11] MEDS: Acetaminophen 325 MG Tablet PO PRN (20:56)
[2018-02-11] MEDS ORDERED: Zolpidem Tartrate 5 MG Tablet PO PRN (21:00)
[2018-02-12] MEDS: Acetaminophen 325 MG Tablet PO PRN (00:32)
[2018-02-12] MEDS: Senna/Docusate Sodium 8.6/50 MG Tablet PO SCH ×2 (00:57→09:04)
--- NOTE | 2018-02-12 07:17 | P.PNOB ---
Subjective Post day: 1 Interval history: day # 1. AFVSS overnight. Pain well-controlled. Decreased lochia. Denies dysuria. No breast tenderness. She is feeding the baby via breast. Appetite good. No nausea or vomiting. + flatus. no bowel movement. Ambulating well. Denies calf pain, shortness of breath, or cough. Otherwise, she is doing well this morning and has no other complaints. Objective Vital Signs/I&O: Vital Signs 02/11/18 09:21 02/11/18 09:30 02/11/18 12:18 Temperature 97.8 F Pulse Rate 77 88 Respiratory Rate 18 Blood Pressure 125/80 119/79 02/11/18 13:15 02/11/18 14:43 02/11/18 15:40 Temperature Pulse Rate 81 77 Respiratory Rate 18 18 18 Blood Pressure 125/100 H 138/81 02/11/18 17:25 02/11/18 17:30 02/11/18 17:37 Temperature Pulse Rate 76 102 H Respiratory Rate 20 Blood Pressure 138/98 H 120/66 02/11/18 17:40 02/11/18 17:44 02/11/18 17:50 Temperature 97.0 F L Pulse Rate 98 H 92 H Respiratory Rate 20 Blood Pressure 110/93 H 123/71 02/11/18 17:55 02/11/18 18:05 02/11/18 18:15 Temperature Pulse Rate 105 H 92 H 96 H Respiratory Rate 20 Blood Pressure 129/76 121/78 122/79 02/11/18 18:40 02/11/18 19:10 02/11/18 19:15 Temperature Pulse Rate 108 H 107 H 109 H Respiratory Rate Blood Pressure 139/92 H 123/71 106/58 L 02/11/18 19:20 02/11/18 19:30 02/11/18 19:45 Temperature Pulse Rate 115 H 132 H 137 H Respiratory Rate Blood Pressure 104/59 L 02/11/18 20:00 02/11/18 20:22 02/11/18 20:36 Temperature 99.1 F Pulse Rate 145 H Respiratory Rate 18 Blood Pressure 123/65 126/96 H 02/11/18 20:52 02/11/18 20:53 02/11/18 21:16 Temperature 100.4 F H Pulse Rate 84 103 H Respiratory Rate 20 Blood Pressure 117/89 117/93 H 11/07/18 21:31 02/11/18 21:33 02/11/18 22:55 Temperature Pulse Rate 102 H 68 Respiratory Rate 18 18 Blood Pressure 148/66 H 140/81 02/11/18 22:56 02/12/18 00:32 02/12/18 02:44 Temperature 100.0 F H 100.1 F H 98.9 F Pulse Rate Respiratory Rate Blood Pressure Intake & Output 02/11/18 02/12/18 02/12/18 18:59 06:59 18:59 Intake Total 1000 / 1000 Balance 1000 / 1000 Weight 77.564 kg Intake: IV 1000 / 1000 LR 1000 mL Inj 1,000 ML @ 3000 1000 / 1000 mls/hr IV.SIG UNSCH PRN Rx#: [id number] Result Diagrams: 02/11/18 09:10 Objective Remarks: GENERAL: Well-nourished, well-developed patient. CARDIOVASCULAR: Regular rate and rhythm without murmurs, gallops, or rubs. RESPIRATORY: Breath sounds equal bilaterally. No accessory muscle use. ABDOMEN/GI: Abdomen soft, non-tender. Fundus: Firm, non-tender at umbilicus. GENITOURINARY: Light to moderate bleeding. EXTREMITIES: No cyanosis or edema, non-tender, without signs of DVT. Medications and IVs: Active Medications Acetaminophen (Tylenol) 650 mg PO Q4H PRN PRN Reason: PAIN SCALE 1 TO 2 Last Admin: 02/12/18 00:32 Dose: 650 mg Al Hydroxide/Mg Hydroxide (Milk Of Magnesia Liq) 30 ml PO Q12H PRN PRN Reason: Mild Constipation Benzocaine (Americaine 20% Top [place]) 1 spray TOPICAL Q4H PRN PRN Reason: For Perineum Discomfort Last Admin: 02/12/18 00:32 Dose: 1 spray Bisacodyl (Dulcolax Supp) 10 mg RECTAL DAILY PRN PRN Reason: SEVERE CONSITIPATION Citric Acid/Sodium Citrate (Sodium Citrate/Citric Acid Liq) 30 ml PO HRIS SPECIALIST REPLACED BY [facility] Stop: 02/15/18 09:14 Ephedrine Sulfate (Ephedrine/Ns Syringe) 10 mg IV.PUSH UNSCH PRN PRN Reason: SEE LABEL COMMENTS Stop: 02/12/18 18:09 Fentanyl Citrate (Fentanyl Inj) 100 mcg IV.PUSH Q1H PRN PRN Reason: PAIN SCALE 6 TO 10 Last Admin: 02/11/18 16:29 Dose: 100 mcg Fentanyl Citrate (Fentanyl Inj) 50 mcg IV.PUSH Q1H PRN PRN Reason: Pain Scale 3 - 5 Lactated Ringer's (Lr 1000 Ml Inj) 1,000 mls @ 125 mls/hr IV.CONT .Q8H LORA Last Admin: 02/11/18 17:49 Dose: 125 mls/hr Lactated Ringer's (Lr 1000 Ml Inj) 1,000 mls @ 3,000 mls/hr IV.SIG UNSCH PRN PRN Reason: compromise or epidural Last Infusion: 02/11/18 18:31 Dose: Infused Sodium Chloride (Ns Inj) 500 mls @ 1,000 mls/hr IV.SIG UNSCH PRN PRN Reason: SEE LABEL COMMENTS Sodium Chloride (Ns Inj) 1,000 mls @ 100 mls/hr IV.CONT .Q10H PRN PRN Reason: SEE LABEL COMMENTS Fentanyl/Bupivacaine/Sodium Chlor (Fentanyl 2 Mcg-Bupiv 0.125% Epi) 150 mls @ 12 mls/hr EPIDURAL PRN PRN PRN Reason: for Labor Pain Last Admin: 02/11/18 18:00 Dose: 12 mls/hr Oxytocin (Pitocin 30 Units/Ns 500 Ml Premix) 30 units in 500 mls @ 100 mls/hr IV.CONT UNSCH PRN PRN Reason: Heavy bleeding Ibuprofen (Motrin) 800 mg PO Q8H PRN PRN Reason: For Cramping Last Admin: 02/12/18 00:32 Dose: 800 mg Lactulose (Lactulose Liq) 30 ml PO DAILY PRN PRN Reason: SEVERE CONSITIPATION Lidocaine HCl (Xylocaine 1% Inj) 0.1 ml I-DERMAL PRN PRN PRN Reason: For IV start Stop: 02/14/18 09:07 Lidocaine HCl (Xylocaine 1% Inj) 10 ml INFILTRATN PRN PRN PRN Reason: For episiotomy repair Stop: 02/13/18 09:07 Mineral Oil (Muri-Lube Oil) 10 ml TOPICAL UNSCH PRN PRN Reason: PRN perineal massage Last Admin: 02/11/18 21:29 Dose: 10 ml Miscellaneous Information (Misc Information) 1 each OTHER UNSCH PRN PRN Reason: SEE LABEL COMMENTS Stop: 02/12/18 18:09 Miscellaneous Information (Misc Information) 1 each OTHER UNSCH PRN PRN Reason: SEE LABEL COMMENTS Stop: 02/12/18 18:09 Naloxone HCl (Narcan Inj) 0.1 mg IV.PUSH Q2M PRN PRN Reason: for opiate reversal Ondansetron HCl (Zofran Odt) 4 mg PO Q6H PRN PRN Reason: NAUSEA OR VOMITING Last Admin: 02/11/18 22:19 Dose: 4 mg Senna/Docusate Sodium (Zoë-Colace) 1 tab PO BID REPLACED BY [facility] Last Admin: 02/12/18 00:57 Dose: Not Given Sennosides (Senokot) 17.2 mg PO Q12H PRN PRN Reason: Moderate Constipation Sodium Chloride (Ns Flush) 2 ml IV.FLUSH BID REPLACED BY [facility] Last Admin: 02/11/18 21:00 Dose: 2 ml Sodium Chloride (Ns Flush) 2 ml IV.FLUSH PRN PRN PRN Reason: FLUSH AFTER USING IV ACCESS Witch Whit/Glycerin (Tucks Pads) 1 applicatio RECTAL QID PRN PRN Reason: HEMORRHOIDS Last Admin: 02/12/18 00:31 Dose: 1 applicatio Zolpidem Tartrate (Ambien) 5 mg PO HS PRN PRN Reason: SLEEP Assessment and Plan - Diagnosis (1) 39 weeks gestation of Code(s): Z3A.39 - 39 weeks gestation of Status: Acute Plan: 22 y/o who is PPD# 1 s/p . -Continue routine care. -Percocet and Motrin PRN pain. -Encouraged OOB. Advised pelvic rest for 6 wks. -Will need a f/u appt. within 6 wks. -Re: ctrl, she would like OCPs. -D/c likely tomorrow. migdalia Freire (2) Uterine contractions Status: Acute
[2018-02-12 20:49] VITALS: TEMP 98.1
[2018-02-13] MEDS: Senna/Docusate Sodium 8.6/50 MG Tablet PO SCH ×2 (03:21→08:23)
[2018-02-13] MEDS: Acetaminophen 325 MG Tablet PO PRN (06:59)
--- NOTE | 2018-02-13 08:27 | P.PNOB ---
Subjective Post day: 2 Interval history: day # 2. AFVSS overnight. Pain well-controlled. Decreased lochia. Denies dysuria. No breast tenderness. She is feeding the baby via breast and bottle. Appetite good. No nausea or vomiting. Passing flatus. No bowel movement. Ambulating well. Denies calf pain, shortness of breath, or cough. Otherwise, she is doing well this morning and has no other complaints. Objective Vital Signs/I&O: Vital Signs 02/12/18 20:00 Temperature 98.1 F Pulse Rate 86 Respiratory Rate 18 Blood Pressure 130/80 Result Diagrams: 02/11/18 09:10 Objective Remarks: GENERAL: Well-nourished, well-developed patient. CARDIOVASCULAR: Regular rate and rhythm without murmurs, gallops, or rubs. RESPIRATORY: Breath sounds equal bilaterally. No accessory muscle use. ABDOMEN/GI: Abdomen soft, non-tender. Fundus: Firm, non-tender below umbilicus. GENITOURINARY: Light to moderate bleeding. EXTREMITIES: No cyanosis or edema, non-tender, without signs of DVT. Medications and IVs: Active Medications Acetaminophen (Tylenol) 650 mg PO Q4H PRN PRN Reason: PAIN SCALE 1 TO 2 Last Admin: 02/13/18 06:59 Dose: 650 mg Al Hydroxide/Mg Hydroxide (Milk Of Magnesia Liq) 30 ml PO Q12H PRN PRN Reason: Mild Constipation Benzocaine (Americaine 20% Top [place]) 1 spray TOPICAL Q4H PRN PRN Reason: For Perineum Discomfort Last Admin: 02/12/18 00:32 Dose: 1 spray Bisacodyl (Dulcolax Supp) 10 mg RECTAL DAILY PRN PRN Reason: SEVERE CONSITIPATION Citric Acid/Sodium Citrate (Sodium Citrate/Citric Acid Liq) 30 ml PO [employer] [facility] Stop: 02/15/18 09:14 Fentanyl Citrate (Fentanyl Inj) 100 mcg IV.PUSH Q1H PRN PRN Reason: PAIN SCALE 6 TO 10 Last Admin: 02/11/18 16:29 Dose: 100 mcg Fentanyl Citrate (Fentanyl Inj) 50 mcg IV.PUSH Q1H PRN PRN Reason: Pain Scale 3 - 5 Lactated Ringer's (Lr 1000 Ml Inj) 1,000 mls @ 125 mls/hr IV.CONT .Q8H [facility] Last Admin: 02/12/18 08:03 Dose: Not Given Lactated Ringer's (Lr 1000 Ml Inj) 1,000 mls @ 3,000 mls/hr IV.SIG UNSCH PRN PRN Reason: compromise or epidural Last Infusion: 02/11/18 18:31 Dose: Infused Sodium Chloride (Ns Inj) 500 mls @ 1,000 mls/hr IV.SIG UNSCH PRN PRN Reason: SEE LABEL COMMENTS Sodium Chloride (Ns Inj) 1,000 mls @ 100 mls/hr IV.CONT .Q10H PRN PRN Reason: SEE LABEL COMMENTS Fentanyl/Bupivacaine/Sodium Chlor (Fentanyl 2 Mcg-Bupiv 0.125% Epi) 150 mls @ 12 mls/hr EPIDURAL PRN PRN PRN Reason: for Labor Pain Last Admin: 02/11/18 18:00 Dose: 12 mls/hr Oxytocin (Pitocin 30 Units/Ns 500 Ml Premix) 30 units in 500 mls @ 100 mls/hr IV.CONT UNSCH PRN PRN Reason: Heavy bleeding Ibuprofen (Motrin) 800 mg PO Q8H PRN PRN Reason: For Cramping Last Admin: 02/13/18 06:59 Dose: 800 mg Lactulose (Lactulose Liq) 30 ml PO DAILY PRN PRN Reason: SEVERE CONSITIPATION Lidocaine HCl (Xylocaine 1% Inj) 0.1 ml I-DERMAL PRN PRN PRN Reason: For IV start Stop: 02/14/18 09:07 Lidocaine HCl (Xylocaine 1% Inj) 10 ml INFILTRATN PRN PRN PRN Reason: For episiotomy repair Stop: 02/13/18 09:07 Mineral Oil (Muri-Lube Oil) 10 ml TOPICAL UNSCH PRN PRN Reason: PRN perineal massage Last Admin: 02/11/18 21:29 Dose: 10 ml Naloxone HCl (Narcan Inj) 0.1 mg IV.PUSH Q2M PRN PRN Reason: for opiate reversal Ondansetron HCl (Zofran Odt) 4 mg PO Q6H PRN PRN Reason: NAUSEA OR VOMITING Last Admin: 02/11/18 22:19 Dose: 4 mg Senna/Docusate Sodium (Zoë-Colace) 1 tab PO BID [place] Last Admin: 02/13/18 08:23 Dose: 1 tab Sennosides (Senokot) 17.2 mg PO Q12H PRN PRN Reason: Moderate Constipation Sodium Chloride (Ns Flush) 2 ml IV.FLUSH BID LORA Last Admin: 02/13/18 03:21 Dose: Not Given Sodium Chloride (Ns Flush) 2 ml IV.FLUSH PRN PRN PRN Reason: FLUSH AFTER USING IV ACCESS Witch Whit/Glycerin (Tucks Pads) 1 applicatio RECTAL QID PRN PRN Reason: HEMORRHOIDS Last Admin: 02/12/18 00:31 Dose: 1 applicatio Zolpidem Tartrate (Ambien) 5 mg PO HS PRN PRN Reason: SLEEP Assessment and Plan - Diagnosis (1) 39 weeks gestation of Code(s): Z3A.39 - 39 weeks gestation of Status: Acute Plan: 22 y/o who is PPD# 2 s/p . -Continue routine care. -Percocet and Motrin PRN pain. -Encouraged OOB. Advised pelvic rest for 6 wks. -Will need a f/u appt. within 6 wks. -Re: ctrl, she would like OCPs, which she plans to discuss further with her OBGYN at her post- appt. -Patient stable for discharge to home today migdalia Hernandez
[2018-02-13 09:05] VITALS: BP 124/70; PULSE 83; RESP 7
== END 2018-02-13 12:30 | disposition home or self-care (01) ==
LOC: HOBED 09:26 → H2E 02-11 08:45 → H1EA 02-11 22:04
PROVIDERS: ADMIT Obstetrics & Gynecology; ATTEND Obstetrics & Gynecology